=== PATIENT | female | born 1985 | race Caucasian/White ===

== ENCOUNTER 2025-02-22 22:22 | Emergency (ER) | payer OTHER, SELFPAY ==
[2025-02-22 22:34] VITALS: BP 149/84
[2025-02-22 23:02] LABS: Urine Albumin 1+ (Neg - Trace); Urine Bilirubin Negative (Negative); Urine Character Clear (Clear); Urine Color Yellow; Urine Glucose Negative (Negative); Urine Ketone 1+ (Negative); Urine Leukocyte Negative (Negative); Urine Nitrite Negative (Negative); Urine Occult Blood 1+ (Negative); Urine Urobilinogen Negative (Neg - 1+); Urine pH 6.5 (5.0-9.0)
[2025-02-22 23:19] LABS: HCG, Serum Qualitative Screen Negative
[2025-02-22 23:22] LABS: % Basophils 0.5 % (0-2); % Eosinophils 3.8 % (0-6); % Lymphocytes 52.6 % (20.5-51.1); % Monocytes 9.2 % (1.7-9.3); % Neutrophils 33.9 % (42.2-75.2); ALT (SGPT) 36 U/L (0-35); AST (SGOT) 38 U/L (14-36); Absolute Eosinophils 0.1 10^3/uL (0-0.7); Absolute Lymphocytes 1.9 10^3/uL (1.2-3.4); Absolute Monocytes 0.3 10^3/uL (0.1-0.6); Absolute Neutrophils 1.3 10^3/uL (1.4-6.5); Albumin 4.2 g/dl (3.5-5.0); Alkaline Phosphatase 53 U/L (38-126); Blood Urea Nitrogen 6 mg/dl (7-17); Calcium 9.3 mg/dl (8.4-10.2); Carbon Dioxide 24 mmol/L (22-30); Chloride 104 mmol/L (98-107); Glucose 98 mg/dl (70-99); Hematocrit 38.1 % (37.0-47.0); Hemoglobin 13.4 g/dL (12.0-16.0); Lipase 194 U/L (23-300); Mean Corp Hgb Conc. 35.2 g/dL (33.0-37.0); Mean Corpuscular Volume 85.4 fL (81.0-99.0); Mean Platelet Volume 10.3 fL (7.4-10.4); Nucleated Red Blood Cells % 0 %; Platelet Count 155 10^3/uL (130-400); Potassium 3.5 mmol/L (3.5-5.1); Red Blood Cell Count 4.46 10^6/uL (4.20-5.40); Red Cell Dist. Width 12.3 % (11.5-14.5); Sodium 138 mmol/L (135-145); Total Protein 6.9 g/dl (6.3-8.2); White Blood Cell Count 3.7 10^3/uL (4.8-10.8); eGFR > 60.00
[2025-02-23 00:52] LABS: Urine Bacteria Few (Negative); Urine Squamous Cell >30 /LPF (Few)
[2025-02-23 01:30] VITALS: BP 114/62
[2025-02-23 02:29] VITALS: BP 109/75
[2025-02-23 03:00] VITALS: BP 105/67
[2025-02-23 03:24] VITALS: BMI 19.8
--- NOTE | 2025-02-23 03:26 | ED.GENMED ---
History of Present Illness
General
Chief Complaint: Abdominal Symptoms
Source: patient
Exam Limitations: none
Time Seen by Provider: 02/23/25 01:49
Nursing documentation reviewed up to this point in time: agreed with
History of Present Illness
History of Present Illness:
39-year-old female presenting to the emergency department today with concerns of nausea vomiting diarrhea over the past 5 days intermittent fevers as well. Initially started with mostly vomiting ongoing diarrhea since. Some ongoing nausea
decreased appetite able to drink fluids. Denies significant abdominal pain at this point no fevers.
Review of Systems
Review of Systems
Allergies reviewed?: Yes
All Other Systems: ROS reviewed and negative except as documented in HPI and ROS
Phy Exam
Physical Exam
Physical Exam:
GENERAL: Alert , in no apparent distress
EYE: pupils equal and reactive
NECK: Supple, no significant adenopathy.
ENT: o/p clr, mmm.
CARDIAC: Regular rate and rhythm .
LUNGS: Clear breath sounds bilaterally, no acute respiratory distress, no wheezes/rales/rhonchi
ABDOMEN: Soft, without focal tenderness, no r/g, no cvat
NEUROLOGICAL: Alert and oriented, no focal neuro deficits
SKIN: Warm and dry, skin intact.
MUSCULOSKELETAL: No edema, well perfused.
PSYCH: Normal and appropriate interaction.
Course
Orders/Labs/Results
Orders:
Orders
02/22/25 22:24
Electrocardiogram (*1) Urgent
Reason for Study: Abdominal Pain
EKG- Treatment ONCE
02/22/25 22:39
Test Result ONCE
02/22/25 22:49
Complete Blood Count/With Diff Urgent
Comprehensive Metabolic Panel Urgent
HCG, Serum Qualitative Screen Urgent
Lipase Urgent
02/22/25 22:55
Urinalysis Reflex To Culture Urgent
Date Specimen was Collected: 02/22/25
Time Specimen was Collected: 22:24
Urine Microscopic Reflex Cult Urgent
02/23/25 02:13
Famotidine [Pepcid] 20 mg .ROUTE .STK-MED ONE
Ondansetron Injectable [Zofran] 4 mg .ROUTE .STK-MED ONE
Abnormal Lab Results
02/22/25 02/22/25
22:49 22:55
WBC 3.7 L 10^3/uL
(4.8-10.8)
Absolute Neuts (auto) 1.3 L 10^3/uL
(1.4-6.5)
Neutrophils % 33.9 L %
(42.2-75.2)
Lymphocytes % 52.6 H %
(20.5-51.1)
BUN 6 L mg/dl
(7-17)
AST 38 H U/L
(14-36)
ALT 36 H U/L
(0-35)
Urine Ketones 1+ A
(Negative)
Ur Occult Blood Reflex 1+ A
(Negative)
Urine RBC 3-6 A /HPF
(0-2)
Urine Bacteria (Reflex) Few A
(Negative)
Urine Albumin (Reflex) 1+ A
(Neg - Trace)
02/22/25 22:49
02/22/25 22:49
Vital Signs
Initial and Last Documented VS:
Initial Vital Signs
Temp Pulse Resp BP Pulse Ox
99.6 F 71 18 149/84 100
02/22/25 22:34 02/22/25 22:34 02/22/25 22:34 02/22/25 22:34 02/22/25 22:34
Last Documented Vital Signs
Temp Pulse Resp BP Pulse Ox
99.6 F 54 18 101/66 98
02/22/25 22:34 02/23/25 01:30 02/23/25 01:30 02/23/25 04:00 02/23/25 04:01
MDM/Problems Addressed
MDM/Problems Addressed:
39-year-old female presenting to the emergency department today with concerns of nausea vomiting diarrhea over the past 5 days or so. Intermittent fevers since. Temperature of 99.6 here otherwise vital signs normal. No significant white count
labs unremarkable urinalysis without signs of infection. Patient no distress soft abdomen. Unlikely surgical process considering no reproducible pain. Labs unremarkable patient no distress very well-appearing here stable for outpatient management
return precautions given.
*Critical Care Note
Total Time (30-74mins, 75-104mins- exclusive of procedures): Not Applicable
ED Attending Note
-
Portions of this chart may have been created with voice recognition software.� Occasional wrong word or��sound alike� substitutions may have occurred due to the inherent limitations of voice recognition software.
Discharge Plan
Departure
Patient Disposition: Home (Routine Discharge)
Date of Disposition: 02/23/25
Time of Disposition: 04:13
Patient with high blood pressure during this ER visit?: No
Condition: Good
Covid-19: Not Applicable
Discharge Problem:
Abdominal pain, vomiting, and diarrhea
Instructions: [place] Diet
Prescriptions:
New
ondansetron 4 mg tablet,disintegrating
4 mg PO Q6H PRN (Reason: nausea and vomiting) Qty: 7 0RF
Referrals:
Agustin Roque MD [Family Provider] -
Activity Restrictions/Additional Instructions:
You came to the emergency department today with concerns of initial nausea vomiting and diarrhea. Here you had a reassuring assessment. Please take the prescribed Zofran and follow-up closely with the primary care doctor for ongoing symptoms.
Return for any worsening, new or concerning symptoms.
Interventions
Interventions:
*Risk Screen - Suicide Last Done: 02/22/25 22:22
*General Assessment Last Done: 02/22/25 22:34
*Neglect/Abuse Screening Last Done: 02/22/25 22:22
*ED- Fall Risk Assessment Last Done: 02/22/25 22:34
*ED COVID-19 Vaccine History Last Done: 02/22/25 22:34
CX-Ohvmvr-Gaqdpocfnt Assessment Last Done: 02/23/25 03:24
Discharge Date and Time
Print Language: GEORGIAN
--- NOTE | 2025-02-23 03:26 | DOWNTIME ---
There was a [employer] Downtime on 02/23/2025 from 0200 to 02/24/2024 at 0318 . Downtime documentation of patient's care, including medication administrations, has been reconciled in the electronic record per guidelines. Refer to the
patient's paper chart under the miscellaneous tab to see printed paper medication records and downtime forms.
[2025-02-23 04:00] VITALS: BP 101/66
== END 2025-02-23 04:26 | disposition home or self-care (01) ==
LOC: EMR 22:22
PROVIDERS: Emergency Medicine; EMERGENCY PHYSICIAN Emergency Medicine; FAMILY PHYSICIAN Family Medicine
DX: R10.9 Unspecified abdominal pain (principal); R11.2 Nausea with vomiting, unspecified; R19.7 Diarrhea, unspecified
CPT/HCPCS: 99283; 80053; 81003; 81015; 83690; 84703; 85025; 93005